=== PATIENT | female | born 1990 | race Caucasian/White ===

== ENCOUNTER 2020-02-12 | Outpatient (REF) | payer OTHER, SELFPAY ==
[2020-02-12 14:49] LABS: Influenza A PCR NEGATIVE (Negative); Influenza B PCR NEGATIVE (Negative); Resp Syncy Virus RNA Qual PCR NEGATIVE (Negative); SARS COV2 PCR INHOUSE NEGATIVE (Negative)
== END 2020-02-12 00:01 | disposition home or self-care (01) ==
LOC: HO.LNP
PROVIDERS: Visit Provider Internal Medicine
DX: Z20.828 Contact with and (suspected) exposure to other viral communicable diseases (principal)
CPT/HCPCS: 0241U

== ENCOUNTER 2023-10-22 12:55 | Outpatient (REF) | payer BC, SELFPAY ==
--- NOTE | ~2023-10-22 | XR_ITS ---
EXAMINATION: XR CHEST CLINICAL INFORMATION: Spot on the lung, patient states follow up to past CT that had shown a spot in the lungs. Prior images not available at this time. COMPARISON: None available. TECHNIQUE: Two views of the chest were obtained. FINDINGS: S-shaped thoracolumbar scoliosis with multilevel degenerative changes. Heart size is normal. There is no gross pneumothorax. The lungs are well inflated. Minimal degenerative changes in the thoracic spine. No significant pleural effusion. A 4 mm right mid lung, perihilar nodular opacity may represent a vessel on end versus a pulmonary nodule. Chest radiographs have very limited sensitivity for detection of pulmonary nodules. We do not have the prior CT scan nor do we have the prior report for this exam at this time. In the absence of prior images, CT scan of the chest is recommended for further evaluation. If prior images are provided, an addendum will be dictated. XR/XR chest 2V IMPRESSION: A 4 mm right mid lung, perihilar nodular opacity may represent a vessel on end versus a pulmonary nodule. Chest radiographs have very limited sensitivity for detection of pulmonary nodules. We do not have the prior CT scan nor do we have the prior report for this exam at this time. In the absence of prior images, CT scan of the chest is recommended for further evaluation. If prior images are provided, an addendum will be dictated. Electronically signed by: Ele Lucas MD 11/06/2023 01:58 PM EDT
== END 2023-10-22 12:56 | disposition home or self-care (01) ==
LOC: HO.XRAY 12:55
PROVIDERS: PCP Internal Medicine; Visit Provider Internal Medicine
DX: R91.8 Other nonspecific abnormal finding of lung field (principal)
CPT/HCPCS: 71046

== ENCOUNTER 2024-02-21 11:19 | Outpatient (REF) | payer BC, SELFPAY ==
--- NOTE | ~2024-02-21 | US_ITS ---
EXAMINATION: US ABDOMEN COMPLETE CLINICAL INFORMATION: Right upper quadrant pain history of gallstones.. COMPARISON: None available. TECHNIQUE: Real-time imaging of the abdominal viscera. FINDINGS: PANCREAS: Visualized portions are unremarkable. ABDOMINAL AORTA: The proximal, mid, and distal segments are normal in caliber. INFERIOR VENA CAVA: Visualized portions are normal. LIVER: The liver is normal in size. The liver contour is normal. Parenchymal echogenicity is normal. No focal hepatic lesion. There is no intrahepatic biliary duct dilatation seen. There is normal left vertebral flow seen in the portal vein on Doppler exam. GALLBLADDER: The gallbladder is physiologically distended without evidence of stones, sludge, polyps, wall thickening or pericholecystic fluid. COMMON BILE DUCT: Normal in caliber measuring 0.5 cm in diameter. RIGHT KIDNEY: No hydronephrosis. No renal calculi or focal parenchymal lesions. The kidney measures 10.6 cm in maximum dimension. LEFT KIDNEY: No hydronephrosis. No renal calculi or focal parenchymal lesions. The kidney measures 10.7 cm in maximum dimension. SPLEEN: The spleen measures 9.4 cm in maximum dimension. FREE FLUID: None. US/US abdomen complete IMPRESSION: Unremarkable complete abdomen ultrasound. Electronically signed by: Armin Up MD 02/21/2024 12:01 PM EST
== END 2024-02-21 11:20 | disposition home or self-care (01) ==
LOC: HO.US 11:19
PROVIDERS: PCP Internal Medicine; Visit Provider Internal Medicine
DX: R10.11 Right upper quadrant pain (principal)
CPT/HCPCS: 76700

== ENCOUNTER → 2024-02-21 11:21 | Outpatient (BNV) | payer BC, SELFPAY | PROVIDERS: PCP Internal Medicine; Visit Provider Radiology Diagnostic Radiology | DX: R10.11 Right upper quadrant pain (principal) | CPT/HCPCS: 76700 ==

== ENCOUNTER 2024-02-21 12:14 | Outpatient (REF) | payer BC, SELFPAY ==
[2024-02-21 12:30] LABS: MANUAL DIFF FLAG NO
[2024-02-21 12:42] LABS: Basophils Absolute Auto 0.1 X10*3/uL (0.0-0.2); Basophils Percent Auto 0.3 % (0-2); Eosinophils Percent Auto 0.3 % (0-4); Hematocrit 40.3 % (37.0-47.0); Hemoglobin 13.9 g/dl (12.0-16.0); Imm Gran Abs Auto 0.06 X10*3/uL (0.00-0.03); Imm Gran Pct Auto 0.4 % (0.0-0.4); Lymphocytes Percent Auto 13.5 % (20-40); Mean Corpuscular HGB Conc 34.5 g/dl (31.0-35.0); Mean Corpuscular Hemoglobin 30.2 pg (27.0-33.0); Mean Corpuscular Volume 87.6 fL (80.0-98.0); Mean Platelet Volume 10.2 fL (9.4-12.3); Monocytes Absolute Auto 0.6 X10*3/uL (0.1-1.2); Monocytes Percent Auto 3.8 % (2-11); Neutrophils Absolute Auto 12.3 x10*3/uL (2.0-8.3); Neutrophils Percent Auto 81.7 % (45-73); Platelet Count 268 X10*3/uL (160-400); Red Cell Distribution Width 12.3 % (11.0-16.0)
[2024-02-21 13:27] LABS: Alanine Aminotransferase 19 U/L (0-31); Albumin Level 4.9 g/dL (3.5-5.0); Alkaline Phosphatase 77 U/L (39-117); Anion Gap 12 (12-20); Aspartate Amino Transferase 18 U/L (5-31); Bilirubin Total 0.5 mg/dL (0.0-1.0); Blood Urea Nitrogen 9 mg/dL (9-16); C Reactive Protein 0.13 mg/dL (< or = 0.50); Calcium 9.2 mg/dL (8.4-10.2); Carbon Dioxide 26 mmol/L (22-29); Chloride 108 mmol/L (96-108); Estimated Glomerular Filt Rate > 60; Glucose Random 118 mg/dL (60-115); Potassium 3.6 mmol/L (3.3-5.1); Sodium 142 mmol/L (135-145)
[2024-02-21 13:44] LABS: Free T4 (Free Thyroxine) 1.19 ng/dL (0.71-1.85); Thyroid Stimulating Hormone 0.85 uIU/mL (0.32-4.0)
[2024-02-21 13:55] LABS: Vitamin B12 549 pg/mL (200-900)
== END 2024-02-21 12:15 | disposition home or self-care (01) ==
LOC: HO.LAB 12:14
PROVIDERS: PCP Internal Medicine; Visit Provider Internal Medicine
DX: R10.9 Unspecified abdominal pain (principal); R00.0 Tachycardia, unspecified; K80.20 Calculus of gallbladder without cholecystitis without obstruction
CPT/HCPCS: 36415; 80053; 82607; 84439; 84443; 85025; 86140

== ENCOUNTER 2024-04-23 15:21 | Outpatient (AMB) | payer BC, SELFPAY ==
--- NOTE | 2024-04-23 15:24 | MHC.PC.OV ---
Vital Signs 04/23/24 15:25 Height 5 ft 5 in Weight 128 lb BMI 21.3 BP 116/80 Respiration 14 Pulse 120 H Pulse Source Pulse Oximeter Temp 97.7 F Temp Source Temporal Artery Scan Pulse Oximetry (%) 99 Oxygen Delivery Method Room Air Intake Visit Reasons: Routine Coremaker Pipe Required: No Accompanied by: Self / Same As Patient Allergies ceclor Allergy (Mild, Uncoded 04/23/24 15:30) Unknown Medication List - Last Reconciled 04/24/24 by Sherlyn Ramirez MD sertraline 25 mg PO DAILY Tobacco use date assessed: 04/23/24 Dental Screening Dental Screen Date: 04/23/24 Did you have a dental visit in the last 12 months?: Yes Did you have a dental problem in the last 6 months where you did not have access to dental care?: No HPI HPI Comments History of Present Illness Details 34 year old female with a past medical history of anxiety presenting for follow up Fall 2023 started having intermittent diarrhea-more frequent and looser stools, mild right upper quadrant discomfort, stomach upset, gurgling. Feels some urgency, transient cramps-which resolve with BM. No nausea, vomiting, GERD. No prior antibiotics, no travel prior to onset of symptoms. No abnormal weight loss, night sweats. Rare overnight symptoms. Had a baby one year ago. Increased anxiety since, says always been anxious. She tried one SSRI years ago for ~1 week but at that time just really just didnt want to be on it. She would like to try a daily medication at this time. 11/2022 incidental gallstone on imaging. Recent abd u/s normal. History of lung nodule on outside CT, needs repeat. ROS see HPI PHYSICAL EXAM: GENERAL: Alert and oriented x 3. NAD EYES: EOMI. Anicteric. HENT: Moist mucous membranes. No scleral icterus. No cervical lymphadenopathy. LUNGS: Clear to auscultation bilaterally. CARDIOVASCULAR: Regular rate and rhythm. No murmur. No JVD. ABDOMEN: Soft, non-tender +bs EXTREMITIES: No edema. Non-tender. SKIN: No rashes or lesions. Warm. NEUROLOGIC: No focal neurological deficits. CN II-XII grossly intact PSYCHIATRIC: Cooperative. Appropriate mood and affect [facility] Family History Father Cancer Mother No problems noted. Social History Housing: House Alcohol intake: current Alcohol intake frequency: holidays/special occasions only Patient Tobacco Use Status: Never used Tobacco service: No Current occupational status: employed Cognitive needs: No Hearing needs: No Vision needs: Yes (rx glasses) Questionnaire PHQ-9 Over the last 2 weeks, how often have you been bothered by any of the following problems? 1. Little interest or pleasure in doing things: not at all 2. Feeling down, depressed, or hopeless: not at all 3. Trouble falling or staying asleep, or sleeping too much: not at all 4. Feeling tired or having little energy: not at all 5. Poor appetite or overeating: not at all 6. Feeling bad about yourself - or that you are a failure or have let yourself or your family down: not at all 7. Trouble concentrating on things, such as reading the newspaper or watching television: not at all 8. Moving or speaking so slowly that other people could have noticed. Or the opposite - being so fidgety or restless that you have been moving around a lot more than usual: not at all 9. Thoughts that you would be better off or of hurting yourself in some way: not at all Total score: 0 Depression Screening Interpretation: Negative Depression Screening Done: Yes 57078 - PHQ-9 Billing: Yes Source: Developed by Drs. Ricardo Wren, Fay Redmond, John Campoverde and colleagues, with an educational sami from [email or web address]. Thrive Questionnaire Date Thrive assessed: 04/23/24 I am a: Patient What is your living situation today?: I have a steady place to live Within the past 12 months, did the food you bought not last and you didn't have the money to get more?: Never true Within the past 12 months, did you worry whether your food would run out before you got money to buy more?: Never true Do you have trouble paying for medicines?: No Do you have trouble getting transportation to medical appointments?: No Do you have trouble paying your heating and electricity bill?: No Do you have trouble taking care of your child, family member or friend?: No Do you have trouble with day-to-day activities such as bathing, preparing meals, shopping, managing finances, etc.?: No Are you currently unemployed and looking for a job?: No Are you interested in more education?: No THRIVE Score: 0 AUDIT C Alcohol Use Questionnaire (AUDIT-C) 1. How often do you have a drink containing alcohol?: Monthly or less 2. How many drinks containing alcohol do you have on a typical day when you are drinking?: 1 or 2 3. How often do you have six or more drinks on one occasion?: Never Total Score: 1 JAZMYNE-7 AMB Questionnaire JAZMYNE-7 Date JAZMYNE - 7 assessed: 04/23/24 Feeling nervous, anxious, or on edge: 3 = Nearly every day Not being able to stop or control worryin = Nearly every day Worrying too much about different things: 3 = Nearly every day Trouble relaxin = More than half the days Being so restless that it is hard to sit still: 0 = Not at all Becoming easily annoyed or irritable: 2 = More than half the days Feeling afraid as if something awful might happen: 3 = Nearly every day Total JAZMYNE-7 score (0-4 normal; 5-9 mild; 10-14 moderate; 15-21 severe): 16 Source: Developed by Drs. Ricardo Wren, Fay Redmond, John Campoverde and colleagues, with an educational sami from [email or web address]. Physical exam (Primary Care) Vital Signs: Last Vital Signs Temp 97.7 F 04/23/24 15:25 Pulse 120 H 04/23/24 15:25 Resp 14 04/23/24 15:25 BP 116/80 04/23/24 15:25 Pulse Ox 99 04/23/24 15:25 Oxygen Delivery Method Room Air 04/23/24 15:25 BMI result Body Mass Index 21.3 Tobacco/Smoking Status: Tobacco use Status Tobacco use date assessed 04/23/24 04/23/24 15:33 Patient Tobacco Use Status Never used Tobacco 04/23/24 15:33 PHQ-9: PHQ-9 Score PHQ-9: Total score 0 04/24/24 08:43 Depression Screening Interpretation: Negative Thrive Assessment: Date of Thrive Assessment Date Thrive assessed 04/23/24 04/23/24 15:33 Coding Level of Care Code Est Pt Level 4 (50436) Complex EM visit Add On G2211 Diagnoses Change in bowel habit R19.4 Anxiety F41.9 Additional Codes PHQ-9 - 90701 - PHQ-9 Billing: Yes ([id number]) Assessment & Plan Assessment & Plan (1) Change in bowel habit: Code(s): R19.4 - Change in bowel habit Category: Medical Plan: Change in stool-more loose and frequent with mild abdominal discomfort Check labs, stool studies. Refer to GI FODMAP diet (2) Anxiety: Code(s): F41.9 - Anxiety disorder, unspecified Category: Medical Plan: start zoloft. Discusssed potential side effects of SSRI. Return 4-6 weeks for evaluation Orders: Orders Comprehensive Met. Panel 04/23/24 F41.9 - Anxiety disorder, unspecified, R10.9 - Unspecified abdominal pain, R19.4 - Change in bowel habit, R91.1 - Solitary pulmonary nodule Calprotectin, Fecal 04/23/24 F41.9 - Anxiety disorder, unspecified, R10.9 - Unspecified abdominal pain, R19.4 - Change in bowel habit, R91.1 - Solitary pulmonary nodule Pancreatic Elastase-1 04/23/24 F41.9 - Anxiety disorder, unspecified, R10.9 - Unspecified abdominal pain, R19.4 - Change in bowel habit, R91.1 - Solitary pulmonary nodule Hemoglobin A1c 04/23/24 F41.9 - Anxiety disorder, unspecified, R10.9 - Unspecified abdominal pain, R19.4 - Change in bowel habit, R91.1 - Solitary pulmonary nodule CT chest wo IV con 04/23/24 R91.1 - Solitary pulmonary nodule Complete Blood Count Auto Diff 04/23/24 F41.9 - Anxiety disorder, unspecified, R10.9 - Unspecified abdominal pain, R19.4 - Change in bowel habit, R91.1 - Solitary pulmonary nodule TSH reflex Free T4 04/23/24 F41.9 - Anxiety disorder, unspecified, R10.9 - Unspecified abdominal pain, R19.4 - Change in bowel habit, R91.1 - Solitary pulmonary nodule UA CC w/rflx Micro + Cult 04/23/24 F41.9 - Anxiety disorder, unspecified, R10.9 - Unspecified abdominal pain, R19.4 - Change in bowel habit, R91.1 - Solitary pulmonary nodule H pylori Ag Stool 04/23/24 R10.9 - Unspecified abdominal pain, R19.4 - Change in bowel habit Fecal Fat Qualitative 04/23/24 R10.9 - Unspecified abdominal pain, R19.4 - Change in bowel habit Referrals Psychology Referral F41.9 - Anxiety disorder, unspecified Gastroenterology Referral F41.9 - Anxiety disorder, unspecified, R10.9 - Unspecified abdominal pain, R19.4 - Change in bowel habit Medications: New sertraline Take 1/2 tab oral once daily for one week then increase to one tab oral once daily 25 mg PO DAILY 90 tabs 3RF
[2024-04-23 15:25] VITALS: BP 116/80; PULSE 120; RESP 14; TEMP 36.5; O2SAT 99; BMI 21.3
--- OUTSIDE RECORDS SUMMARY | 2024-04-23 18:58 | XMS_ITS | Patient Health Record ---
Author Organization [facility] Address [address] [place] [address] Care Team Providers Care Senior Process Analyst Name Role Phone CHINA MYLES M.D. Primary Care Provider KARL Ward Unavailable [phone] Allergies Allergen (clinical drug ingredient) Drug/Non Drug Allergy documented on EMR Reaction Allergy Type Onset Date Status CECLOR Unknown Drug Allergy Active Reason For Referral No Information Medications Medication SIG (Take, Route, Frequency, Duration) Notes Start Date End Date Status Womens Daily Formula Not-Taking Pre-Siva - 1 tablet Orally Once a day for 30 day(s) Active Che Allergy 180 MG 1 tablet Orally PRN prn Active Immunizations Vaccine Route Administration Date Status Comme nts HPV (human papillomavirus), quadrivalent, 3 dose schedule Unknown 03/27/2011 Pending Influenza, live, intranasal Intramuscular 03/27/2011 Pendi ng Influenza, live, intranasal Intramuscular 05/08/2011 Pendi ng Tdap Intramuscular 03/27/2011 Pending Social History Alcohol Screen (Audit-C) Question Answer Notes Did you have a drink contain ing alcohol in the past year? Yes How often did you have a dri nk containing alcohol in the past year? 2 to 4 times a month (2 points) How many drinks did you have on a typical day when you were drinking in the past year? 1 or 2 drinks (0 point) Points 2 Tobacco use other than smoking: Question Answer Notes Are you an other tobacco user? No Problems Problem Type SNOMED Code ICD Code Onset Dates Problem Status W/U Status Risk Notes Problem Irregular Menstruation (74128809) Other specified irregular menstruation (N92.5) Active confirmed Problem Abnormal vaginal bleeding (894201131) Other specified abnormal uterine and vaginal bleeding (N93.8) Active confirmed Problem Idiopathic kyphoscoliosis (disorder) (099998124) Scoliosis (and kyphoscoliosis), idiopathic (737.30) Active confirmed Diag Plan Of Treatment Pending Test Test Name Order Date PAP SMEAR 04/22/2014 Ultrasound : Sono Hystergram 10/08/2017 COMPLETE BLOOD COUNT 10/03/2016 THIN PREP,HPV IF ASCUS, CT/GC (21-29YR) 10/08/2017 THIN PREP,HPV,VINNIE IF HPV+ (>29YR)(DIAG) 01/23/2022 TSH 10/03/2016 MM Digital Mammo Screening 02/13/2022 Screening Right Breast Ultrasound 2022 Diagnostic Right Mammo/Limited Right Ult rasound 01/23/2022 Insurance Providers Payer Name Payer Address Payer Phone Subscriber Number Group Number Insured Name Patient Relationship to Insured Coverage Start Date Coverage End Date [employer] [place] [address] [place] [address] [id number] CHARLY GUZMÁN Self - patient is the insured Medical (General) History Medical History History ICD Code Other idiopathic scoliosis, site unspeci fied M41.20 Other specified irregular menstruation N 92.5 Other specified abnormal uterine and vag inal bleeding N93.8 Surgical History Surgery Date(Month/Year)
--- OUTSIDE RECORDS SUMMARY | 2024-04-23 18:59 | XMS_ITS ---
Author Organization [facility] [employer] [facility] Address [address] [place] [id number] Care Team Providers Care Venue Manager Name Role Phone CHINA MYLES M.D. Primary Care Provider KARL Ward [phone] REASON FOR VISIT Annual RN PLACEMENT Physical Encounters Encounter Location Date Provider Diagnosis [facility] [employer] [address] [address] 01/24/2023 KARL MAHAJAN Plan Of Treatment No Information Progress Notes * RAMIREZ CHARLY TDOB: [birth year] (34 yo F)Acc No.[id number]:01/24/2023 PROGRESS NOTES Patient:?KARSON GUZMÁNLEY Nick Provider:?KARL MAHAJAN MD :1990???Age:33 Y???Sex:Female D ate:01/24/2023 Address:[address] [place], [place] [id number] Pcp:CHINA MYLES M.D. Subjective: * Chief Complaints: * ???1. Annual RN PLACEMENT Physical. * Medical History:? Objective: * Vitals:? Assessment: Plan: * Treatment: * Images: Billing Information: * Visit Code:? * Procedure Codes:? * Electronic signature of KARL MAHAJAN MD on 04/23/2024 at 06:58 PM EDT Sign off status: Pending * Provider:?KARL MAHAJAN MD Date:?2022 Generated for Printi ng/Jenny/eTransmitting on:?04/23/2024 06:58 PM EDT
--- OUTSIDE RECORDS SUMMARY | 2024-04-23 18:59 | XMS_ITS ---
Author Organization [facility] Address [address] [place] [address] Care Team Providers Care Buckle Wire Inserter Name Role Phone CHINA MYLES M.D. Primary Care Provider KARL Ward [phone] REASON FOR VISIT Annual CUT ORDER HAND Physical Encounters Encounter Location Date Provider Diagnosis [facility] [address] [address] 02/19/2023 KARL MAHAJAN Plan Of Treatment No Information Progress Notes * KARSON GUZMÁNLEY TDOB: [birth year] (34 yo F)Acc No.[id number]:02/19/2023 PROGRESS NOTES Patient:?CHARLY GUZMÁN Provider:?KARL MAHAJAN MD :1990???Age:33 Y???Sex:Female D ate:02/19/2023 Address:[address] [place], [place] [id number] Pcp:CHINA MYLES M.D. Subjective: * Chief Complaints: * ???1. Annual CUT ORDER HAND Physical. * Medical History:? Objective: * Vitals:? Assessment: Plan: * Treatment: * Images: Billing Information: * Visit Code:? * Procedure Codes:? * Electronic signature of KARL MAHAJAN MD on 04/23/2024 at 06:58 PM EDT Sign off status: Pending * Provider:?KARL MAHAJAN MD Date:?2023 Generated for Printi crystal/Jenny/eTransmitting on:?04/23/2024 06:58 PM EDT
== END 2024-04-23 16:10 | disposition home or self-care (01) ==
LOC: HO.HMCHD 15:21
PROVIDERS: PCP Internal Medicine; Visit Provider Internal Medicine
DX: R19.4 Change in bowel habit (principal); F41.9 Anxiety disorder, unspecified

== ENCOUNTER → 2024-04-23 15:21 | Outpatient (BNVA) | payer BC, SELFPAY | PROVIDERS: PCP Internal Medicine; Visit Provider Internal Medicine | DX: R19.7 Diarrhea, unspecified (principal); R10.11 Right upper quadrant pain; R39.15 Urgency of urination; R19.4 Change in bowel habit; F41.9 Anxiety disorder, unspecified; R91.1 Solitary pulmonary nodule | CPT/HCPCS: 96127 ==

== ENCOUNTER 2024-04-27 15:24 | Outpatient (REF) | payer BC, SELFPAY ==
[2024-04-27 15:41] LABS: MANUAL DIFF FLAG NO
[2024-04-27 16:19] LABS: Basophils Percent Auto 0.3 % (0-2); Eosinophils Absolute Auto 0.1 X10*3/uL (0.0-0.4); Eosinophils Percent Auto 0.7 % (0-4); Hematocrit 36.5 % (37.0-47.0); Hemoglobin 12.1 g/dl (12.0-16.0); Imm Gran Abs Auto 0.02 X10*3/uL (0.00-0.03); Imm Gran Pct Auto 0.2 % (0.0-0.4); Lymphocytes Absolute Auto 2.3 X10*3/uL (1.2-4.9); Lymphocytes Percent Auto 25.4 % (20-40); Mean Corpuscular HGB Conc 33.2 g/dl (31.0-35.0); Mean Corpuscular Hemoglobin 29.7 pg (27.0-33.0); Mean Corpuscular Volume 89.5 fL (80.0-98.0); Monocytes Absolute Auto 0.6 X10*3/uL (0.1-1.2); Monocytes Percent Auto 7.1 % (2-11); Neutrophils Percent Auto 66.3 % (45-73); Platelet Count 300 X10*3/uL (160-400); Red Blood Count 4.08 X10*6/uL (4.20-5.50); Red Cell Distribution Width 11.9 % (11.0-16.0)
[2024-04-27 16:21] LABS: Estimated Average Glucose 100 mg/dL; Hemoglobin A1c % 5.1 % (<6.0)
[2024-04-27 17:13] LABS: Appearance Urine Clear; Color Urine Yellow; Glucose Urine UA Negative (Negative); Leukocyte Esterase Urine Negative (Negative); Nitrite Urine Negative (Negative); Specific Gravity - Urine <= 1.005 (1.005-1.025); Urine Blood Negative (Negative); Urine Ketones Negative (Negative); Urine Protein Negative (Neg-Trace)
[2024-04-27 17:15] LABS: Alanine Aminotransferase 24 U/L (0-31); Albumin Level 4.7 g/dL (3.5-5.0); Alkaline Phosphatase 75 U/L (39-117); Anion Gap 10 (12-20); Aspartate Amino Transferase 17 U/L (5-31); Bilirubin Total 0.4 mg/dL (0.0-1.0); Blood Urea Nitrogen 6 mg/dL (9-16); Calcium 8.9 mg/dL (8.4-10.2); Carbon Dioxide 27 mmol/L (22-29); Chloride 111 mmol/L (96-108); Estimated Glomerular Filt Rate > 60; Glucose Random 72 mg/dL (60-115); Potassium 3.6 mmol/L (3.3-5.1); Sodium 144 mmol/L (135-145); Total Protein 7.8 g/dL (6.5-8.0)
[2024-04-27 17:17] LABS: TSH reflex Free T4 1.66 uIU/mL (0.32-4.0)
== END 2024-04-27 15:25 | disposition home or self-care (01) ==
LOC: HO.LAB 15:24
PROVIDERS: PCP Internal Medicine; Visit Provider Internal Medicine
DX: F41.9 Anxiety disorder, unspecified (principal); R19.4 Change in bowel habit; R10.9 Unspecified abdominal pain; R91.1 Solitary pulmonary nodule; Z13.1 Encounter for screening for diabetes mellitus
CPT/HCPCS: 36415; 80053; 81003; 83036; 84443; 85025

== ENCOUNTER 2024-04-28 21:05 | Outpatient (REF) | payer BC, SELFPAY ==
[2024-05-03 15:49] LABS: Fecal Fat Qualitative Abnormal (Normal)
[2024-05-06 18:48] LABS: Calprotectin, Fecal 18 mcg/g
[2024-05-07 02:38] LABS: Pancreatic Elastase-1 >800 mcg/g (>200)
== END 2024-04-28 21:06 | disposition home or self-care (01) ==
LOC: HO.LNP 21:05
PROVIDERS: Visit Provider Internal Medicine
DX: F41.9 Anxiety disorder, unspecified (principal); R19.4 Change in bowel habit; R10.9 Unspecified abdominal pain; R91.1 Solitary pulmonary nodule
CPT/HCPCS: 82656; 82705; 83993; 87338

== ENCOUNTER 2024-06-11 13:47 | Outpatient (AMB) | payer BC, SELFPAY ==
--- NOTE | 2024-06-11 13:42 | MHC.PC.OV ---
Vital Signs 06/11/24 13:44 Height 5 ft 5 in Weight 124 lb BMI 20.6 BP 112/72 Respiration 14 Pulse 114 H Pulse Source Pulse Oximeter Temp 97.7 F Temp Source Temporal Artery Scan Pulse Oximetry (%) 99 Oxygen Delivery Method Room Air Intake Visit Reasons: F/U to [facility] Computer Networking Instructor Adjunct Required: No Accompanied by: Self / Same As Patient Allergies ceclor Allergy (Mild, Uncoded 06/11/24 13:43) Unknown Tobacco use date assessed: 06/11/24 Dental Screening Dental Screen Date: 04/23/24 HPI HPI Comments History of Present Illness Details 34 year old female with a past medical history of anxiety, possible IBS presenting for follow up Fall 2023 started having intermittent diarrhea-more frequent and looser stools, mild right upper quadrant discomfort, stomach upset, gurgling. Feels some urgency, transient cramps-which resolve with BM. No nausea, vomiting, GERD. No prior antibiotics, no travel prior to onset of symptoms. No abnormal weight loss, night sweats. Rare overnight symptoms. Had a baby one year ago. Increased anxiety since, says always been anxious. She tried one SSRI years ago for ~1 week but at that time just really just didnt want to be on it. She would like to try a daily medication at this time. 11/2022 incidental gallstone on imaging. Recent abd u/s normal. Has appt with GI scheduled in 2 weeks Anxiety: On zoloft 25mg daily. Had first therapy session yesterday. Is doing well on the medication History of lung nodule on outside CT, needs repeat. Ordered and scheduled in 3 weeks. ROS see HPI PHYSICAL EXAM: GENERAL: Alert and oriented x 3. NAD EYES: EOMI. Anicteric. HENT: Moist mucous membranes. No scleral icterus. No cervical lymphadenopathy. LUNGS: Clear to auscultation bilaterally. CARDIOVASCULAR: Regular rate and rhythm. No murmur. No JVD. ABDOMEN: Soft, non-tender +bs EXTREMITIES: No edema. Non-tender. SKIN: No rashes or lesions. Warm. NEUROLOGIC: No focal neurological deficits. CN II-XII grossly intact PSYCHIATRIC: Cooperative. Appropriate mood and affect [facility] Family History Father Cancer Mother No problems noted. Social History Housing: House Alcohol intake: current Alcohol intake frequency: holidays/special occasions only Patient Tobacco Use Status: Never used Tobacco service: No Current occupational status: employed Cognitive needs: No Hearing needs: No Vision needs: Yes (rx glasses) Questionnaire PHQ-9 Over the last 2 weeks, how often have you been bothered by any of the following problems? 1. Little interest or pleasure in doing things: not at all 2. Feeling down, depressed, or hopeless: not at all 3. Trouble falling or staying asleep, or sleeping too much: not at all 4. Feeling tired or having little energy: not at all 5. Poor appetite or overeating: not at all 6. Feeling bad about yourself - or that you are a failure or have let yourself or your family down: not at all 7. Trouble concentrating on things, such as reading the newspaper or watching television: not at all 8. Moving or speaking so slowly that other people could have noticed. Or the opposite - being so fidgety or restless that you have been moving around a lot more than usual: not at all 9. Thoughts that you would be better off or of hurting yourself in some way: not at all Total score: 0 Depression Screening Interpretation: Negative Depression Screening Done: Yes 90575 - PHQ-9 Billing: Yes Source: Developed by Drs. Ricardo Wren, Fay Redmond, John Campoverde and colleagues, with an educational sami from [employer]. Thrive Questionnaire Date Thrive assessed: 04/23/24 I am a: Patient What is your living situation today?: I have a steady place to live Within the past 12 months, did the food you bought not last and you didn't have the money to get more?: Never true Within the past 12 months, did you worry whether your food would run out before you got money to buy more?: Never true Do you have trouble paying for medicines?: No Do you have trouble getting transportation to medical appointments?: No Do you have trouble paying your heating and electricity bill?: No Do you have trouble taking care of your child, family member or friend?: No Do you have trouble with day-to-day activities such as bathing, preparing meals, shopping, managing finances, etc.?: No Are you currently unemployed and looking for a job?: No Are you interested in more education?: No THRIVE Score: 0 AUDIT C Alcohol Use Questionnaire (AUDIT-C) 1. How often do you have a drink containing alcohol?: Monthly or less 2. How many drinks containing alcohol do you have on a typical day when you are drinking?: 1 or 2 3. How often do you have six or more drinks on one occasion?: Never Total Score: 1 JAZMYNE-7 AMB Questionnaire JAZMYNE-7 Date JAZMYNE - 7 assessed: 04/23/24 Feeling nervous, anxious, or on edge: 3 = Nearly every day Not being able to stop or control worryin = Nearly every day Worrying too much about different things: 3 = Nearly every day Trouble relaxin = More than half the days Being so restless that it is hard to sit still: 0 = Not at all Becoming easily annoyed or irritable: 2 = More than half the days Feeling afraid as if something awful might happen: 3 = Nearly every day Total JAZMYNE-7 score (0-4 normal; 5-9 mild; 10-14 moderate; 15-21 severe): 16 Source: Developed by Drs. Ricardo Wren, Fay Redmond, John Campoverde and colleagues, with an educational sami from [employer]. Physical exam (Primary Care) Vital Signs: Last Vital Signs Temp 97.7 F 06/11/24 13:44 Pulse 114 H 06/11/24 13:44 Resp 14 06/11/24 13:44 BP 112/72 06/11/24 13:44 Pulse Ox 99 06/11/24 13:44 Oxygen Delivery Method Room Air 06/11/24 13:44 BMI result Body Mass Index 20.6 Tobacco/Smoking Status: Tobacco use Status Tobacco use date assessed 06/11/24 06/11/24 13:44 Patient Tobacco Use Status Never used Tobacco 06/11/24 13:44 PHQ-9: PHQ-9 Score PHQ-9: Total score 0 06/11/24 13:51 Depression Screening Interpretation: Negative Thrive Assessment: Date of Thrive Assessment Date Thrive assessed 04/23/24 06/11/24 13:44 Coding Level of Care Code Est Pt Level 3 (24289) Diagnoses Anxiety F41.9 Additional Codes PHQ-9 - 76431 - PHQ-9 Billing: Yes ([id number]) Assessment & Plan Assessment & Plan (1) Anxiety: Code(s): F41.9 - Anxiety disorder, unspecified Category: Medical Plan: Improved symptoms on zoloft 25mg daily She is happy with the current dose She will follow up in six months or sooner as needed
[2024-06-11 13:44] VITALS: BP 112/72; PULSE 114; RESP 14; TEMP 36.5; O2SAT 99; BMI 20.6
--- OUTSIDE RECORDS SUMMARY | 2024-06-11 16:01 | XMS_ITS | Patient Health Record ---
Author Organization [facility] Address [address] [facility] [address] [place] [address] Care Team Providers Care Railroad Hand Name Role Phone CHINA MYLES M.D. Primary Care Provider KARL Ward Unavailable [phone] Allergies Allergen (clinical drug ingredient) Drug/Non Drug [...] W/U Status Risk Notes Problem Irregular Menstruation (63639373) Other specified irregular menstruation (N92.5) Active confirmed Problem Abnormal vaginal bleeding (154019583) Other specified abnormal uterine and vaginal bleeding (N93.8) Active confirmed Problem Idiopathic kyphoscoliosis (disorder) (637945105) Scoliosis (and kyphoscoliosis), idiopathic (737.30) Active confirmed [...] End Date [employer] [place] [address] [place] [address] [id number] CHARLY GUZMÁN Self - patient is the insured Medical (General) History Medical History History ICD Code Other idiopathic scoliosis, site unspeci fied M41.20 Other specified irregular menstruation N 92.5 Other specified abnormal uterine and vag inal bleeding N93.8 Surgical History Surgery Date(Month/Year)
--- OUTSIDE RECORDS SUMMARY | 2024-06-11 16:01 | XMS_ITS ---
Author Organization [facility] Address [address] [place] [phone] Care Team Providers Care Sole Leather Cutting Machine Operator Name Role Phone CHINA MYLES M.D. Primary Care Provider KARL Ward [phone] REASON FOR VISIT Annual SENIOR PAYROLL ADMINISTRATOR Physical Encounters Encounter Location Date Provider Diagnosis [facility] [address] [address] 02/19/2023 KARL MAHAJAN Plan Of Treatment No Information Progress Notes * KARSON GUZMÁNLEY TDOB: [birth year] (34 yo F)Acc No.[id number]:02/19/2023 PROGRESS NOTES Patient:?CHARLY GUZMÁN Provider:?KARL MAHAJAN MD :1990???Age:33 Y???Sex:Female D ate:02/19/2023 Address:[address] [place], [place] [phone] Pcp:CHINA MYLES M.D. Subjective: * Chief Complaints: * ???1. Annual SENIOR PAYROLL ADMINISTRATOR Physical. * Medical History:? Objective: * Vitals:? Assessment: Plan: * Treatment: * Images: Billing Information: * Visit Code:? * Procedure Codes:? * Electronic signature of KARL MAHAJAN MD on 06/11/2024 at 04:00 PM EDT Sign off status: Pending * Provider:?KARL MAHAJAN MD Date:?2023 Generated for Printi crystal/Jenny/eTransmitting on:?06/11/2024 04:00 PM EDT
--- OUTSIDE RECORDS SUMMARY | 2024-06-11 16:01 | XMS_ITS ---
Author Organization [facility] Address [address] [place] [phone] Care Team Providers Care Body And Frame Man Name Role Phone CHINA MYLES M.D. Primary Care Provider KARL Ward [phone] REASON FOR VISIT Annual CASINO ATTENDANT Physical Encounters Encounter Location Date Provider Diagnosis [facility] [employer] [address] [address] 01/24/2023 KARL MAHAJAN Plan Of Treatment No Information Progress Notes * KARSON GUZMÁNLEY TDOB: [birth year] (34 yo F)Acc No.[id number]:01/24/2023 PROGRESS NOTES Patient:?CHARLY GUZMÁN Provider:?KARL MAHAJAN MD :1990???Age:33 Y???Sex:Female D ate:01/24/2023 Address:[address] [place], [place] [phone] Pcp:CHINA MYLES M.D. Subjective: * Chief Complaints: * ???1. Annual CASINO ATTENDANT Physical. * Medical History:? Objective: * Vitals:? Assessment: Plan: * Treatment: * Images: Billing Information: * Visit Code:? * Procedure Codes:? * Electronic signature of KARL MAHAJAN MD on 06/11/2024 at 04:01 PM EDT Sign off status: Pending * Provider:?KARL MAHAJAN MD Date:?2022 Generated for Printi crystal/Jenny/eTransmitting on:?06/11/2024 04:01 PM EDT
--- OUTSIDE RECORDS SUMMARY | 2024-06-11 16:01 | XMS_ITS | Clinical Summary ---
Author Organization 175 [facility] Address 175 [place] [address] Phone Care Team Providers Care Molecular Biology Professor Name Role Phone Jan Rodríguez MD Primary Care Provider [phone] Encounters Date Type Department Care Team Description 04/30/2024 Telephone Gastroenterology - [place] [address] [facility] 175 [facility] [address] [place] [address] Josiane Rojas MD MISSING INFORMATION from Last 3 Months Social History Tobacco Use Types Packs/Day Years Used Date Smoking Tobacco: Never Assessed Comments Unknown Sex and Gender Information Value Date Recorded Sex Assigned at Not on file Legal Sex Female 2:46 PM EDT Gender Identity Not on file Sexual Orientation Not on file Plan of Treatment Upcoming Encounters Date Type Department Care Team (Late st Contact Info) Description 06/24/2024 1:00 PM EDT Consult Gastroenterology - [address] [facility] [address] [address] Gabrielle Geller PA 299 [facility] 419 [place] [address] Health Maintenance Due Date Last Done Comments DTaP,Tdap,and Td Vaccines (1 - Tdap) 01/09/2007 Hepatitis B Vaccines (1 of 3 - 19+ 3-dose series) 01/09/2007 Cervical Cancer Screening: P ap Smear 01/09/2009 COVID-19 Vaccine ( - 2023-2 5 season) 2023 Depression Screening 04/30/2024 HIV Screening 04/30/2024 Hepatitis C Screening 04/30/2024 Social Influencers of Health Screening 04/30/2024 Influenza Vaccine (Season Ended) 2024 HIB Vaccines Aged Out No longer eligi ble based on patient's age to complete this topic HPV Vaccines Aged Out No longer eligi ble based on patient's age to complete this topic Hepatitis A Vaccines Aged Out No long er eligible based on patient's age to complete this topic IPV Vaccines Aged Out No longer eligi ble based on patient's age to complete this topic MMR Vaccines Aged Out No longer eligi ble based on patient's age to complete this topic Meningococcal ACWY Vaccine Aged Out N o longer eligible based on patient's age to complete this topic Meningococcal B Vaccine Aged Out No l onger eligible based on patient's age to complete this topic Pneumococcal Vaccine: Pediat rics (0 to 5 Years) and At-Risk Patients (6 to 64 Years) Aged Out No longer eligible b ased on patient's age to complete this topic RSV Immunization Patients Un bethanie 20 months Aged Out No longer eligible b ased on patient's age to complete this topic Varicella Vaccines Aged Out No longer eligible based on patient's age to complete this topic Insurance [facility] Care Teams Molecular Biology Professor Relationship Specialty Start Date End Date Jan Rodríguez MD [address] [place] [address] Dr [place] PCP - General Internal Medicine 05/06/24
== END 2024-06-11 14:03 | disposition home or self-care (01) ==
LOC: HO.HMCHD 13:47
PROVIDERS: PCP Internal Medicine; Visit Provider Internal Medicine
DX: F41.9 Anxiety disorder, unspecified (principal)

== ENCOUNTER → 2024-06-11 13:47 | Outpatient (BNVA) | payer BC, SELFPAY | PROVIDERS: PCP Internal Medicine; Visit Provider Internal Medicine | DX: F41.9 Anxiety disorder, unspecified (principal); R10.11 Right upper quadrant pain | CPT/HCPCS: 96127 ==

== ENCOUNTER 2024-07-03 15:58 | Outpatient (REF) | payer BC, SELFPAY ==
--- NOTE | ~2024-07-03 | CT_ITS ---
CLINICAL HISTORY: R91.1 - Solitary pulmonary nodule CT chest without contrast Comparison: 10/22/2023 radiograph Findings: The heart is normal size. The visualized thyroid and mediastinum are unremarkable. Single focus of linear atelectasis versus scarring in the left lower lobe. 5 mm right perifissural nodule on series 4 image 86. A few additional bilateral lung nodules with the largest located in the subpleural aspect of the left lower lobe (series 4, image 108) and measuring up to 4 mm. Small nonobstructive left renal stone and mild prominence of the left renal collecting system. In the presence of left flank pain further evaluation with ultrasound or CT would be of value. Right-sided curvature of the thoracic spine. No acute fracture. IMPRESSION: Small number of the up to 5 mm bilateral lung nodules. In low risk patients no routine follow-up required, while in high-risk patients optional CT at 12 months recommended per Fleischner society guidelines. Small nonobstructive left renal stone and mild prominence of the left renal collecting system. In the presence of left flank pain further evaluation with ultrasound or CT would be of value. This document has been electronically signed by: Erin Sheikh MD on 07/07/2024 13:44:44
--- OUTSIDE RECORDS SUMMARY | 2024-07-03 16:01 | XMS_ITS | Clinical Summary ---
Author Organization 175 [facility] Address 175 [place] [address] Phone Care Team Providers Care Train Gateman Name Role Phone Jan Rodríguez MD Primary Care Provider [phone] Allergies Active Allergy Reactions Criticality Noted Date Comments Cefaclor 06/24/2024 Medications sertraline (ZOLOFT) 25 mg tablet Take 1 tablet (25 mg total) by mouth 1 (one) time each day. 04/23/2024 Active lactobacillus acidoph-l.bulgar 100 million cell granules in packet Take 1 packet by mouth. Active Active Problems Problem Noted Date Diagnosed Date Left upper quadrant abdominal pain during pregna ncy 06/22/2024 Encounters Date Type Department Care Team Description 06/24/2024 1:00 PM EDT Consult Gastroenterology - [address] [place] [address] 299 [facility] 419 [place] [address] Gabrielle Geller PA Irritable bowel syndrome with diarrhea (Primary Dx) 04/30/2024 Telephone Gastroenterology - [place] 175 [facility] 175 [facility] 200 [place] [address] Josiane Rojas MD MISSING INFORMATION from Last 3 Months Medical History Medical History Date Comments Chronic diarrhea Anxiety Family History Medical History Relation Name Comments Celiac disease Father's Sister Ellen Relation Name Status Comments Father's Sister Ellen Social History Tobacco Use Types Packs/Day Years Used Date Smoking Tobacco: Never Smokeless Tobacco: Never Alcohol Use Standard Drinks/Week Comments Yes 1 (1 standard drink = 0.6 oz pur e alcohol) Comments Unknown Sex and Gender Information Value Date Recorded Sex Assigned at Not on file Legal Sex Female 2:46 PM EDT Gender Identity Not on file Sexual Orientation Not on file Obstetrics History Last Filed Vital Signs Vital Sign Reading Time Taken Comments Blood Pressure - - Pulse - - Temperature - - Respiratory Rate - - Oxygen Saturation - - Inhaled Oxygen Concentration - - Weight 58.3 kg (128 lb 9.6 oz) 06/24/2024 1:01 P M EDT Height 165.1 cm (5' 5 ) 06/24/2024 1:01 PM EDT Body Mass Index 21.4 06/24/2024 1:01 PM EDT Plan of Treatment Upcoming Encounters Date Type Department Care Team (Late st Contact Info) Description 09/30/2024 3:30 PM EDT Office Visit Gastroenterology - [address] [place] [address] Gabrielle Geller PA [address] [place] [address] [place] [address] Health Maintenance Due Date Last Done Comments Hepatitis B Vaccines (1 of 3 - 19+ 3-dose series) 01/09/2007 Cervical Cancer Screening: Pap Smear 01/09/2009 COVID-19 Vaccine ( season) 2023 11/09/2021, 12/14/2020, 04/07/2020, Additional history exists Depression Screening 04/30/2024 HIV Screening 04/30/2024 Hepatitis C Screening 04/30/2024 Social Influencers of Health Screening 04/30/2024 DTaP,Tdap,and Td Vaccines (2 - Td or Tdap) 03/05/2033 03/05/2023 Influenza Vaccine Completed 12/25/2023, , 11/09/2021, Additional history exists HIB Vaccines Aged Out No longer eligi [...] age to complete this topic Pneumococcal Vaccine: Pediatrics (0 to 5 Years) and At-Risk Patients (6 to 64 Years) Aged Out No longer eligible based on patient's age to complete this topic RSV Immunization Patients Under 20 months Aged Out No longer eligible based on patient's age to complete this topic Varicella Vaccines Aged Out No longer eligible based on patient's age to complete this topic Insurance [facility] Care Teams Train Gateman Relationship Specialty Start Date End Date Jan Rodríguez MD [address] [place] [address] Dr [place] PCP - General Internal Medicine 05/06/24
== END 2024-07-03 15:59 | disposition home or self-care (01) ==
LOC: HO.CT 15:58
PROVIDERS: PCP Internal Medicine; Visit Provider Internal Medicine
DX: R91.1 Solitary pulmonary nodule (principal)
CPT/HCPCS: 71250

== ENCOUNTER → 2024-07-03 16:00 | Outpatient (BNV) | payer BC, SELFPAY | PROVIDERS: PCP Internal Medicine; Visit Provider Radiology Diagnostic Radiology | DX: R91.8 Other nonspecific abnormal finding of lung field (principal); N20.0 Calculus of kidney; R10.9 Unspecified abdominal pain | CPT/HCPCS: 71250 ==

== ENCOUNTER 2024-12-18 09:11 | Outpatient (AMB) | payer BC, SELFPAY ==
--- NOTE | 2024-12-18 09:13 | MHC.PC.OV ---
Vital Signs 12/18/24 09:17 Height 5 ft 5 in Weight 131 lb 4 oz BMI 21.8 BP 126/84 Blood Pressure Location Rt brachial Position Sitting Respiration 14 Pulse 108 H Pulse Source Pulse Oximeter Temp 98.2 F Temp Source Oral Pulse Oximetry (%) 98 Oxygen Delivery Method Room Air Intake Visit Reasons: HEIKE from [address]/ new RX follow up Intake Note: New patient visit Import Specialist Required: No Allergies ceclor Allergy (Mild, Uncoded 12/18/24 09:15) Unknown Tobacco use date assessed: 12/18/24 Dental Screening Dental Screen Date: 12/18/24 Did you have a dental visit in the last 12 months?: Yes Did you have a dental problem in the last 6 months where you did not have access to dental care?: No Was dental information given to patient?: Patient has dentist HPI HPI Comments History of Present Illness Details 34 year old female with a past medical history of anxiety, possible IBS presenting for follow up GI: symptoms quiet after initiation of SSRI. High fecal fat otherwise labs normal. Saw GI for consult Fall 2023 started having intermittent diarrhea-more frequent and looser stools, mild right upper quadrant discomfort, stomach upset, gurgling. Feels some urgency, transient cramps-which resolve with BM. No nausea, vomiting, GERD. No prior antibiotics, no travel prior to onset of symptoms. No abnormal weight loss, night sweats. Rare overnight symptoms. Had a baby one year ago. Increased anxiety since, says always been anxious. She tried one SSRI years ago for ~1 week but at that time just really just didnt want to be on it. She would like to try a daily medication at this time. 11/2022 incidental gallstone on imaging. Recent abd u/s normal. Anxiety: On zoloft 25mg daily. Saw therapist. Doing fairly well. May consider increasing to 50mg at some point though feels stable at present Rsp: History lung nodule on outside CT, repeated [facility]. No further follow up needed ROS see HPI PHYSICAL EXAM: GENERAL: Alert and oriented x 3. NAD EYES: EOMI. Anicteric. HENT: Moist mucous membranes. No scleral icterus. No cervical lymphadenopathy. LUNGS: Clear to auscultation bilaterally. CARDIOVASCULAR: Regular rate and rhythm. No murmur. No JVD. ABDOMEN: Soft, non-tender +bs EXTREMITIES: No edema. Non-tender. SKIN: No rashes or lesions. Warm. NEUROLOGIC: No focal neurological deficits. CN II-XII grossly intact PSYCHIATRIC: Cooperative. Appropriate mood and affect [facility] Family History Father Cancer Mother No problems noted. Social History Housing: House Alcohol intake: current Alcohol intake frequency: holidays/special occasions only Patient Tobacco Use Status: Never used Tobacco e-Cigarette/Vaping Use: Never Used service: No Current occupational status: employed Current occupation: manager community Current occupational exposures/hazards: No Cognitive needs: No Hearing needs: No Vision needs: Yes (rx glasses) Questionnaire PHQ-9 Over the last 2 weeks, how often have you been bothered by any of the following problems? 1. Little interest or pleasure in doing things: not at all 2. Feeling down, depressed, or hopeless: not at all 3. Trouble falling or staying asleep, or sleeping too much: not at all 4. Feeling tired or having little energy: not at all 5. Poor appetite or overeating: not at all 6. Feeling bad about yourself - or that you are a failure or have let yourself or your family down: not at all 7. Trouble concentrating on things, such as reading the newspaper or watching television: not at all 8. Moving or speaking so slowly that other people could have noticed. Or the opposite - being so fidgety or restless that you have been moving around a lot more than usual: not at all 9. Thoughts that you would be better off or of hurting yourself in some way: not at all Total score: 0 Depression Screening Interpretation: Negative Depression Screening Done: Yes 03163 - PHQ-9 Billing: Yes Source: Developed by Drs. Ricardo Wren, Fay Redmond, John Campoverde and colleagues, with an educational sami from [employer]. Thrive Questionnaire Date Thrive assessed: 12/18/24 I am a: Patient What is your living situation today?: I have a steady place to live Within the past 12 months, did the food you bought not last and you didn't have the money to get more?: Never true Within the past 12 months, did you worry whether your food would run out before you got money to buy more?: Never true Do you have trouble paying for medicines?: No Do you have trouble getting transportation to medical appointments?: No Do you have trouble paying your heating and electricity bill?: No Do you have trouble taking care of your child, family member or friend?: No Do you have trouble with day-to-day activities such as bathing, preparing meals, shopping, managing finances, etc.?: No Are you currently unemployed and looking for a job?: No Are you interested in more education?: No Please select the resources that you would like help with: None Currently or been in a relationship where the following occur: No concerns reported THRIVE Score: 0 AUDIT C Alcohol Use Questionnaire (AUDIT-C) 1. How often do you have a drink containing alcohol?: 2-4 times a month 2. How many drinks containing alcohol do you have on a typical day when you are drinking?: 1 or 2 3. How often do you have six or more drinks on one occasion?: Never Total Score: 2 JAZMYNE-7 AMB Questionnaire JAZMYNE-7 Date JAZMYNE - 7 assessed: 12/18/24 Feeling nervous, anxious, or on edge: 1 = Several days Not being able to stop or control worryin = Not at all Worrying too much about different things: 0 = Not at all Trouble relaxin = Not at all Being so restless that it is hard to sit still: 0 = Not at all Becoming easily annoyed or irritable: 1 = Several days Feeling afraid as if something awful might happen: 0 = Not at all Total JAZMYNE-7 score (0-4 normal; 5-9 mild; 10-14 moderate; 15-21 severe): 2 Source: Developed by Drs. Ricardo Wren, Fay Redmond, John Campoverde and colleagues, with an educational sami from [employer]. JAZMYNE-7 Assessment Billing JAZMYNE-7 Assessment Tool: JAZMYNE-7 Assessment 98912 Physical exam (Primary Care) Vital Signs: Last Vital Signs Temp 98.2 F 12/18/24 09:17 Pulse 108 H 12/18/24 09:17 Resp 14 12/18/24 09:17 BP 126/84 12/18/24 09:17 Pulse Ox 98 12/18/24 09:17 Oxygen Delivery Method Room Air 12/18/24 09:17 BMI result Body Mass Index 21.8 Tobacco/Smoking Status: Tobacco use Status Tobacco use date assessed 12/18/24 12/18/24 09:20 Patient Tobacco Use Status Never used Tobacco 12/18/24 09:20 e-Cigarette/Vaping Use Never Used 12/18/24 09:20 PHQ-9: PHQ-9 Score PHQ-9: Total score 0 12/18/24 12:57 Depression Screening Interpretation: Negative Thrive Assessment: Date of Thrive Assessment Date Thrive assessed 12/18/24 12/18/24 09:15 Currently or been in a relationship where the following occur: No concerns reported Coding Level of Care Code Est Pt Level 4 (79752) Complex EM visit Add On G2211 Diagnoses Anxiety F41.9 Change in bowel habit R19.4 Lung nodule R91.1 Additional Codes JAZMYNE-7 Assessment Billing - JAZMYNE-7 Assessment Tool: JAZMYNE-7 Assessment 01642 ([id number]) PHQ-9 - 01517 - PHQ-9 Billing: Yes ([id number]) Assessment & Plan Assessment & Plan (1) Anxiety: Code(s): F41.9 - Anxiety disorder, unspecified Category: Medical (2) Change in bowel habit: Code(s): R19.4 - Change in bowel habit Category: Medical (3) Lung nodule: Code(s): R91.1 - Solitary pulmonary nodule Category: Medical Plan 34 year old for follow up Anxiety is well controlled on SSRI. Will contact if she wants to up dosage GI symptoms are quiet. She will follow up with GI only prn Return in six months for CPE Orders: Orders Comprehensive Met. Panel Today F41.9 - Anxiety disorder, unspecified, R19.4 - Change in bowel habit, Z13.220 - Encounter for screening for lipoid disorders Lipid Panel Today F41.9 - Anxiety disorder, unspecified, R19.4 - Change in bowel habit, Z13.220 - Encounter for screening for lipoid disorders TSH reflex Free T4 Today F41.9 - Anxiety disorder, unspecified, R19.4 - Change in bowel habit, Z13.220 - Encounter for screening for lipoid disorders Complete Blood Count Auto Diff Today F41.9 - Anxiety disorder, unspecified, R19.4 - Change in bowel habit, Z13.220 - Encounter for screening for lipoid disorders Medications: Changed From sertraline Take 1/2 tab oral once daily for one week then increase to one tab oral once daily 25 mg PO DAILY 90 tabs 3RF To sertraline 25 mg PO DAILY 90 tabs 3RF
[2024-12-18 09:17] VITALS: BP 126/84; PULSE 108; RESP 14; TEMP 36.8; O2SAT 98; BMI 21.8
--- OUTSIDE RECORDS SUMMARY | 2024-12-18 10:16 | XMS_ITS | Clinical Summary ---
Author Organization [facility] Address [address] [place] [address] Phone Care Team Providers Care Gi Tech Name Role Phone Jan Rodríguez MD Primary Care Provider [phone] Allergies Active Allergy Reactions Criticality Noted Date Comments Cefaclor 06/24/2024 Medications sertraline (ZOLOFT) 25 mg tablet Take 1 tablet (25 mg total) by mouth 1 (one) time each day. 04/23/2024 Active lactobacillus acidoph-l.bulgar 100 million cell granules in packet Take 1 packet by mouth. Active Active Problems Problem Noted Date Diagnosed Date Left upper quadrant abdominal pain during pregna ncy 06/22/2024 Medical History Medical History Date Comments Chronic [...] 06/24/2024 1:01 PM EDT Plan of Treatment Health Maintenance Due Date Last Done Comments Hepatitis B Vaccines (1 of 3 - 19+ 3-dose series) 01/09/2007 Cervical Cancer Screening: Pap Smear 01/09/2009 HPV Vaccines (1 - 3-dose SCDM series) 01/09/2015 Depression Screening 02/12/2024 HIV Screening 04/30/2024 Hepatitis C Screening 04/30/2024 Social Influencers of Health Screening 04/30/2024 COVID-19 Vaccine ( - season) 2024 11/09/2021, 12/14/2020, 04/07/2020, Additional history exists Influenza Vaccine (#1) 2024 , 12/07/2022, 11/09/2021, Additional history exists DTaP,Tdap,and Td Vaccines (2 - Td or Tdap) 03/05/2033 03/05/2023 RSV Immunization Adult Patients (1 - 1-dose 75+ series) 01/09/2063 HIB Vaccines Aged Out No longer eligi [...] 5 Years) and At-Risk Patients (6 to 49 Years) Aged Out No longer eligible based on patient's age to complete this topic RSV Immunization Patients Under 20 months Aged Out No longer eligible based on patient's age to complete this topic Varicella Vaccines Aged Out No longer eligible based on patient's age to complete this topic Insurance [facility] Care Teams Gi Tech Relationship Specialty Start Date End Date Jan Rodríguez MD [address] [place] [address] Dr [place] PCP - General Internal Medicine 05/06/24
--- OUTSIDE RECORDS SUMMARY | 2024-12-18 10:16 | XMS_ITS | Patient Health Record ---
Author Organization [facility] Address [address] [place] [address] Care Team Providers [employer] Worker Name Role Phone CHINA MYLES M.D. Primary Care Provider KARL Ward Unavailable [phone] Allergies Allergen (clinical drug ingredient) Drug/Non Drug Allergy documented on EMR Reaction Allergy Type Onset Date Status CECLOR Unknown Drug Allergy Active Reason For Referral No Information Medications Medication SIG (Take, Route, Frequency, Duration) Notes Start Date End Date Status Womens Daily Formula Not-Taking Pre-Siva - 1 tablet Orally Once a day; Duration: 30 day(s) Active Che Allergy 180 MG [...] W/U Status Risk Notes Problem Irregular Menstruation (02704298) Other specified irregular menstruation (N92.5) Active confirmed Problem Abnormal vaginal bleeding (998269511) Other specified abnormal uterine and vaginal bleeding (N93.8) Active confirmed Problem Idiopathic kyphoscoliosis (disorder) (624496034) Scoliosis (and kyphoscoliosis), idiopathic (737.30) Active confirmed Diag Plan Of Treatment Pending Test Test Name Order Date PAP SMEAR 04/22/2014 Ultrasound : Sono Hystergram 10/08/2017 COMPLETE BLOOD COUNT 10/03/2016 THIN PREP,HPV IF ASCUS, CT/GC (21-29YR) 10/08/2017 THIN PREP,HPV,VINNIE IF HPV+ (>29YR)(DIAG) 01/23/2022 TSH 10/03/2016 MM Digital Mammo Screening 02/13/2022 Screening Right Breast Ultrasound 2022 Diagnostic Right Mammo/Limited Right Ult rasound 01/23/2022 Next Appt Details Provider Name:KARL George, 12/29/2024 11:00:00 AM, [address] [facility], [address], [place], [address], Insurance Providers Payer Name Payer Address Payer Phone Subscriber Number Group Number Insured Name Patient Relationship to Insured Coverage Start Date Coverage End Date [employer] [place] [address] [place] [address] [id number] CHARLY GUZMÁN Self - patient is the insured Medical (General) History Medical History History ICD Code Other idiopathic scoliosis, site unspeci fied M41.20 Other specified irregular menstruation N 92.5 Other specified abnormal uterine and vag inal bleeding N93.8 Surgical History Surgery Date(Month/Year)
== END 2024-12-18 09:31 | disposition home or self-care (01) ==
LOC: HO.HMCFM 09:12
PROVIDERS: PCP Internal Medicine; Visit Provider Internal Medicine
DX: F41.9 Anxiety disorder, unspecified (principal); R19.4 Change in bowel habit; R91.1 Solitary pulmonary nodule

== ENCOUNTER → 2024-12-18 09:11 | Outpatient (BNVA) | payer BC, SELFPAY | PROVIDERS: PCP Internal Medicine; Visit Provider Internal Medicine | DX: F41.9 Anxiety disorder, unspecified (principal); R19.4 Change in bowel habit; R91.1 Solitary pulmonary nodule; Z79.899 Other long term (current) drug therapy; Z13.31 Encounter for screening for depression; Z13.39 Encounter for screening examination for other mental health and behavioral disorders | CPT/HCPCS: 96127 ==